=== PATIENT | male | born 1970 | race Hispanic/Latino ===

== ENCOUNTER 2018-12-18 21:20 | Emergency (ER) | payer OTHER ==
[~2018-12-18] VITALS: Ht 172.7 cm; Wt 86.2 kg
[2018-12-18] MEDS ORDERED: FAMOTIDINE 20 MG/2 ML VIAL IV STA (22:02)
[2018-12-18] MEDS ORDERED: DIPHENHYDRAMINE HCL INJ 50 MG/ML VIAL IV ONE (22:15)
[2018-12-18] MEDS ORDERED: METHYLPREDNISOLONE SOD SUCC 125 MG/2ML VIAL IV ONE (22:15)
[2018-12-18] MEDS ORDERED: ALBUTEROL/IPRATROPIUM 3 ML NEB NEB ONE (22:15)
[2018-12-18] MEDS ORDERED: DIPHENHYDRAMINE HCL INJ 50 MG/ML VIAL ONE (22:24)
[2018-12-18] MEDS ORDERED: FAMOTIDINE 20 MG/2 ML VIAL IV ONE (22:24)
[2018-12-18] MEDS ORDERED: METHYLPREDNISOLONE SOD SUCC 125 MG/2ML VIAL ONE (22:24)
[2018-12-18] MEDS ORDERED: ALBUTEROL/IPRATROPIUM 3 ML NEB ONE (22:25)
--- NOTE | 2018-12-19 00:06 | NUR ---
PT SLEEPING, STATES PT FEELING MUCH BETTER.
[2018-12-19] MEDS ORDERED: PREDNISONE20 MG PO (00:32)
[2018-12-19] MEDS ORDERED: epipen IM (00:36)
[2018-12-19] MEDS ORDERED: RANITIDINE HCL150 MG PO (00:38)
[2018-12-19 03:42] VITALS: BP 142/75
== END 2018-12-19 00:52 | disposition home or self-care (01) ==
LOC: FSED 21:20
DX: T78.40XA Allergy, unspecified, initial encounter (principal); J98.01 Acute bronchospasm; J38.4 Edema of larynx; K21.9 Gastro-esophageal reflux disease without esophagitis
CPT/HCPCS: 99282; J1200; J2930

== ENCOUNTER 2020-01-04 01:19 | Emergency (ER) | payer OTHER ==
[~2020-01-04] VITALS: Ht 172.7 cm; Wt 83.9 kg
[~2020-01-04 01:19] MED LIST: PREDNISONE20 MG PO; RANITIDINE HCL150 MG PO; epipen IM
[2020-01-04] MEDS ORDERED: TETRACAINE HCL 0.5% OPTH SOLN 4 ML BTL ONE (01:37)
[2020-01-04] MEDS ORDERED: FLUORESCEIN SOD(OPTH) 1 MG STRP ONE (01:37)
[2020-01-04] MEDS ORDERED: ERYTHROMYCIN (OPTH) 3.5 GM OINT OP ONE ×2 (01:43→01:45)
[2020-01-04] MEDS ORDERED: TETRACAINE HCL 0.5% OPTH SOLN 4 ML BTL OP ONE (01:45)
[2020-01-04] MEDS ORDERED: FLUORESCEIN SOD(OPTH) 1 MG STRP OP ONE (01:45)
--- NOTE | 2020-01-04 02:11 | Emergency Department Note ---
History of Present Illnes History of Present Illness Chief Complaint: Eye, Ear, Nose, Throat, Dental History of Present Illness This is a 49 year old male c/o both eye irritation at work, feeling like some sands flying into his eye. He went home took shower and let th water soaked into his eyes but the pain got worse, more on the right side, pain, teary, swelling . Historian: Patient Arrival Mode: Car Furniture Mover Required: No Onset (how long ago): hour(s) Radiation: Reports non-radiation Severity: moderate Onset quality: gradual Timing of current episode: constant Progression: worsening Relieving factors: none Exacerbating factors: none Associated symptoms: Reports denies other symptoms Treatments prior to arrival: none Past Medical/Family History Physician Review I have reviewed the patient's past medical and family history. Any updates have been documented here. Past Medical History Recent Fever: No Clinical Suspicion of Infectio: No New/Unexplained Change in Ment: No Past Medical History: None Past Surgical History: None Social History Smoking Cessation: Never Smoker Counseling Performed: No Alcohol Use: None Any Illegal Drug Use: No Physically hurt or threatened: No Other Last Tetanus: UTD Any Pre-Existing Lines (PICC,: No Review of Systems Review of Systems Constitutional: Reports no symptoms EENTM: Reports as per HPI, Reports eye pain (visual acuity: 20/40 OS, 20/40 OD, ), Reports tearing (Visual acuity: 20/40 OS, 20/40 OD, 20/30 OU), Reports other (wearing reading glasses but can drive without glasses) Respiratory: Reports no symptoms Gastrointestinal: Reports no symptoms Genitourinary: Reports no symptoms Musculoskeletal: Reports no symptoms Integumentary: Reports no symptoms Neurological: Reports no symptoms Psychological: Reports no symptoms Endocrine: Reports no symptoms Hematological/Lymphatic: Reports no symptoms Physical Exam Related Data Allergies: Coded Allergies: No Known Allergies (Unverified , 01/04/20) Triage Vital Signs Vital Signs Date Time Temp Pulse Resp B/P (MAP) Pulse Ox O2 Delivery O2 Flow Rate FiO2 01/04/20 01:31 98.2 70 18 165/85 100 Physical Exam CONSTITUTIONAL Constitutional: Present well-developed, Present well-nourished HENT HENT: Present normocephalic, Present atraumatic, Present oropharynx clear/moist, Present nose normal, Present other (Visual acuity: 20/40 OS, 20/40 OD, 20/30 OU) HENT L/R: Present left ext ear normal, Present right ext ear normal EYES Eyes: Reports PERRL, Reports conjunctivae normal NECK Neck: Present ROM normal PULMONARY Pulmonary: Present effort normal, Present breath sounds normal CARDIOVASCULAR Cardiovascular: Present regular rhythm, Present heart sounds normal, Present capillary refill normal, Present normal rate GASTROINTESTINAL Abdominal: Present soft, Present nontender, Present bowel sounds normal GENITOURINARY Genitourinary: Present exam deferred SKIN Skin: Present warm, Present dry MUSCULOSKELETAL Musculoskeletal: Present ROM normal NEUROLOGICAL Neurological: Present alert, Present oriented x 3, Present no gross motor or sensory deficits PSYCHOLOGICAL Psychological: Present mood/affect normal, Present judgement normal Procedures Foreign Body - Eye Time out performed: Yes Location: right eye Topical anesthetic: tetracaine Foreign body: other (none found) Evidence of corneal penetratio: No Post-procedure medication: ophthalmic antibiotic Patient tolerated procedure: well Additional comments Fluorescein stained: right eye 0.5x 2cm abrasion, left small abrasion Assessment & Plan Medical Decision Making MDM conjunctivitis, corneal abrasion vs ulcer. Reassessment Reassessment time: 01:57 Reassessment more comfortable after local anesthetic, abx and eye patches . Assessment & Plan Final Impression: (1) Conjunctivitis (2) Corneal abrasion of both eyes Depart Disposition: HOME, SELF-CARE Last Vital Signs Date Time Temp Pulse Resp B/P (MAP) Pulse Ox O2 Delivery O2 Flow Rate FiO2 01/04/20 01:31 98.2 70 18 165/85 100 Home Meds Active Scripts Ranitidine Hcl (RANITIDINE HCL) 150 Mg Tablet, 1 TAB PO BID, #60 TAB 0 Refills Prov:MIRACLE GONZALEZ MD 12/19/18 [epipen] No Conflict Check, 0.3 MG IM PRN for allergic reaction, #2 PKG 0 Refills May repeat in 5-15 minutes x 1, if needed. Call 911, after use. Prov:MIRACLE GONZALEZ MD 12/19/18 Prednisone (PREDNISONE) 20 Mg Tab, 20 MG PO BID for for rash for 7 Days, #14 TAB 0 Refills Prov:MIRACLE GONZALEZ MD 12/19/18 Medications in the ED Tetracaine HCl 4 ml STK-MED ONCE .ROUTE ; Start 01/04/20 at 01:37; Stop 01/04/20 at 01:33; Status DC Fluorescein Sodium 2 mg STK-MED ONCE .ROUTE ; Start 01/04/20 at 01:37; Stop 01/04/20 at 01:33; Status DC Erythromycin 3.5 gm STK-MED ONCE OP ; Start 01/04/20 at 01:43; Stop 01/04/20 at 01:38; Status DC Tetracaine HCl ONCE ONCE OP Last administered on 01/04/20at 01:52; Admin Dose 1 ML; Start 01/04/20 at 01:45; Stop 01/04/20 at 01:52; Status DC Erythromycin ONCE ONCE OP Last administered on 01/04/20at 01:53; Admin Dose 10 MG; Start 01/04/20 at 01:45; Stop 01/04/20 at 01:52; Status DC Fluorescein Sodium 1 mg ONCE ONCE OP Last administered on 01/04/20at 01:53; Admin Dose 1 MG; Start 01/04/20 at 01:45; Stop 01/04/20 at 01:52; Status DC Physician Attestation Provider Attestation Erythromycin ointment, OTC Tylenol, Benadryl, ibuprofen, f/u with his eye doctor next week CARLEEN KEMP MD Jan 04, 2020 02:11
--- OUTSIDE RECORDS SUMMARY | 2020-01-05 16:32 | XMS REPORT | Continuity of Care Document ---
Author Author [facility] t Organization [facility] Address [address] [place] [address] Phone Unavailable Care Team Providers Care Director Employment Name Role Phone Jory GUTIERREZ M.D. PCP Payers Payer Name Policy Type Policy Number Effective Date Expiration Date [id number]:00 [facility] Cigna o [id number] 2018 00:00:00 [facility] Problems Condition Name Condition Details Condition Category Status Onset Date Resolution Date Last Treatment Date Treating Clinician Comments Source Problem Condition Active [facility] Allergies, Adverse Reactions, Alerts This patient has no known allergies or adverse reactions. Social History Social Habit Start Date Stop Date Quantity Comments Source Sex Assigned At 1970 00:00:00 1970 00:00:00 Male [facility] Medications Ordered Medication Name Filled Medication Name Start Date Stop Da te Current Medication? Ordering Clinician Indication Dosage Frequency Signature (SIG) Comments Components Source Ranitidine Hcl Ranitidine Hcl 2018-12-19 00:38:00 Yes 1 Twice A Day [facility] Epipen Epipen 2018-12-19 00:36:00 Yes .3 as needed for Allergic Reaction [facility] Prednisone Prednisone 2018-12-19 00:32:00 Yes 20 Twice A Day for For Rash [facility] Vital Signs Vital Name Observation Time Observation Value Comments Source Weight 2020-01-04 01:31:00 185 [lb_av] [facility] BMI (Body Mass Index) 2020-01-04 01:31:00 28.1 kg/m2 [facility] Procedures This patient has no known procedures. Plan of Care Planned Activity Planned Date Details Comments Source Instructions Corneal Abrasion [facility] Encounters Start Date/Time End Date/Time Encounter Type Admission Type [facility] Care Department Encounter ID Source 2020-01-04 01:30:00 2020-01-04 02:04:00 Departed Emergency Room [facility] [id number] [facility] 2018-12-18 21:20:00 2018-12-19 00:52:00 Departed Emergency Room [facility] [id number] [facility] Results This patient has no known results.
== END 2020-01-04 02:04 | disposition home or self-care (01) ==
LOC: FSED 01:30
DX: S05.02XA Injury of conjunctiva and corneal abrasion without foreign body, left eye, initial encounter (principal); S05.01XA Injury of conjunctiva and corneal abrasion without foreign body, right eye, initial encounter; T15.92XA Foreign body on external eye, part unspecified, left eye, initial encounter; T15.91XA Foreign body on external eye, part unspecified, right eye, initial encounter; Y99.0 Civilian activity done for income or pay
CPT/HCPCS: 99283